=== PATIENT | male | born 1980 | race Caucasian/White ===

== ENCOUNTER 2018-11-27 00:18 | Emergency (ER) | payer MEDICAID ==
[~2018-11-27] VITALS: Ht 185.4 cm; Wt 130.2 kg
[2018-11-27 00:57] VITALS: BP_SYST 133
[2018-11-27] MEDS ORDERED: INDOMETHACIN 25 MG CAPSULE(INDOCIN) PO ONE (01:30)
[2018-11-27 02:00] VITALS: BP_SYST 133
== END 2018-11-27 02:00 | disposition home or self-care (01) ==
LOC: SED 00:18
DX: M10.072 Idiopathic gout, left ankle and foot (principal); R03.0 Elevated blood-pressure reading, without diagnosis of hypertension; J45.909 Unspecified asthma, uncomplicated; Z90.49 Acquired absence of other specified parts of digestive tract
CPT/HCPCS: 99282